=== PATIENT | male | born 1970 | race African-American/Black ===

== ENCOUNTER 2017-11-19 13:31 | Emergency (ER) | payer MEDICAID, MEDICARE ==
[~2017-11-19] VITALS: Ht 172.7 cm; Wt 120.0 kg
[2017-11-19 14:22] LABS: BASOPHILS % 0.6 % (0.0-2.0); EOSINOPHILS % 3.5 % (0.0-5.0); HEMATOCRIT. 41.1 % (42.0-52.0); HEMOGLOBIN. 13.9 g/dL (14.0-18.0); LYMPHOCYTES % 30.3 % (20.0-50.0); MEAN CORPUSCULAR HEMOGLOBIN 27.9 pg (28.0-32.0); MEAN CORPUSCULAR VOLUME 82.5 fL (80.0-94.0); MEAN PLATELET VOLUME 8.2 fl (7.4-10.4); MONOCYTES % 10.8 % (2.0-8.0); NEUTROPHILS % 54.8 % (40.0-76.0); PLATELET 285 x1000/uL (130-400); RED BLOOD CELL COUNT 4.98 mill/uL (4.7-6.1); RED CELL DISTRIBUTION WIDTH 13.9 % (11.6-14.6)
[2017-11-19 14:30] LABS: CHLORIDE 104 mEq/L (98-107); PROTHROMBIN TIME 10.8 sec (9.4-11.6)
[2017-11-19] MEDS ORDERED: ONDANSETRON HCL 4MG/2ML VIAL IV STA (16:58)
[2017-11-19] MEDS ORDERED: MECLIZINE 25MG TABLET PO ONE (17:00)
[2017-11-19] MEDS ORDERED: CLONIDINE 0.2MG TABLET PO ONE (17:00)
[2017-11-19 17:51] LABS: CREATINE KINASE 471 IU/L (39-308)
[2017-11-19 18:07] LABS: CLARITY URINE CLEAR (CLEAR); COLOR URINE YELLOW (YELLOW); KETONES URINE NEGATIVE (NEGATIVE); LEUKOCYTE ESTERASE URINE NEGATIVE (NEGATIVE); NITRITE URINE NEGATIVE (NEGATIVE); OCCULT BLOOD URINE NEGATIVE (NEGATIVE); PROTEIN URINE NEGATIVE (NEGATIVE); SPECIFIC GRAVITY URINE 1.009 (1.005-1.030); UROBILINOGEN URINE 0.2 E.U./dL (0.2-1.0)
[2017-11-19 18:17] LABS: *AMPHETAMINES SCREEN URINE NEGATIVE (NEGATIVE); *BARBITURATES SCREEN URINE NEGATIVE (NEGATIVE); *BENZODIAZEPINES SCREEN URINE NEGATIVE (NEGATIVE); *COCAINE SCREEN URINE NEGATIVE (NEGATIVE)
[2017-11-19 18:19] LABS: CANNABINOID URINE SCREEN NEGATIVE (NEGATIVE); METHADONE URINE SCREEN NEGATIVE (NEGATIVE); OPIATES URINE SCREEN NEGATIVE (NEGATIVE); PHENCYCLIDINE URINE SCREEN NEGATIVE (NEGATIVE)
[2017-11-19] MEDS ORDERED: LABETALOL 5MG/ML SYR 20 MG/4 ML SYRINGE IV ONE (18:30)
[2017-11-19 19:14] VITALS: BP 138/92
== END 2017-11-19 19:34 | disposition home or self-care (01) ==
LOC: ER 13:31
DX: I10 Essential (primary) hypertension (principal); R42 Dizziness and giddiness; R41.82 Altered mental status, unspecified; R11.0 Nausea
CPT/HCPCS: 36415; 70450; 71045; 80053; 80305; 81003; 82550; 83880; 84443; 84484; 85025; 85610; 93005; 96374; 96375; 99285; G0482; J2405; J3490; J8597